=== PATIENT | female | born 1950 | race Caucasian/White ===

== ENCOUNTER 2020-07-03 23:41 | Emergency (ER) | payer MEDICARE ==
[~2020-07-03] VITALS: Ht 157.5 cm; Wt 55.0 kg
[2020-07-03] MEDS ORDERED: VITAMIN D PO (23:52)
[2020-07-03] MEDS ORDERED: TIMO0.5S29 (23:52)
[2020-07-04 01:00] VITALS: BP 173/81
== END 2020-07-04 01:33 | disposition home or self-care (01) ==
LOC: M ED 23:41
DX: K64.5 Perianal venous thrombosis (principal)

== ENCOUNTER 2023-07-27 23:36 | Emergency (ER) | payer MEDICARE, OTHER ==
[~2023-07-27] VITALS: Ht 157.5 cm; Wt 55.3 kg
[~2023-07-27 23:36] MED LIST: TIMO0.5S20; VITAMIN D PO
[2023-07-28 00:31] LABS: BASO # 0.1 10^3/uL (0.0-0.2); BASO % 0.9 % (0.0-1.0); EOS % 0.6 % (0.0-3.0); HEMATOCRIT 44.1 % (36.0-47.0); HEMOGLOBIN 14.7 g/dl (12.0-15.5); LYMPH # 1.6 10^3/uL (1.5-5.0); LYMPH % 24.7 % (24.0-44.0); MEAN CORPUSCULAR HEMOGLOBIN 29.8 pg (27.0-33.0); MEAN CORPUSCULAR HGB CONC 33.3 g/dl (32.0-36.5); MEAN CORPUSCULAR VOLUME 89.5 fl (80.0-96.0); MONO # 0.6 10^3/uL (0.0-0.8); MONO % 9.7 % (2.0-8.0); NEUTROPHILS # 4.2 10^3/uL (1.5-8.5); NEUTROPHILS % 63.5 % (36.0-66.0); PLATELET COUNT, AUTOMATED 310 10^3/uL (150-450); RED BLOOD COUNT 4.93 10^6/uL (4.00-5.40); WHITE BLOOD COUNT 6.6 10^3/uL (4.0-10.0)
[2023-07-28 01:05] LABS: LIPASE 31 U/L (12-53)
[2023-07-28 01:07] LABS: ALBUMIN 4.1 G/DL (3.2-5.2); ALKALINE PHOSPHATASE 71 U/L (46-116); ALT/SGPT < 9 U/L (7.0-40); AST/SGOT 17 U/L (<34); BILIRUBIN,DIRECT 0.3 MG/DL (<0.4); BILIRUBIN,TOTAL 0.9 MG/DL (0.3-1.2); BLOOD UREA NITROGEN 13 MG/DL (9-23); CALCIUM LEVEL 9.9 MG/DL (8.3-10.6); CARBON DIOXIDE LEVEL 30 MMOL/L (20-31); CHLORIDE LEVEL 107 MMOL/L (98-107); CK-MB VALUE MASS < 1.0 NG/ML (<3.6); CPK CREATINE PHOSPHOKINASE 55 U/L (34-145); CREATININE FOR GFR 0.66 MG/DL (0.55-1.30); GLOMERULAR FILTRATION RATE > 60.0 (>39); GLUCOSE, FASTING 137 MG/DL (74-106); MB/CK RELATIVE INDEX 1.81 (< OR =4); POTASSIUM SERUM 4.3 MMOL/L (3.5-5.1); SODIUM LEVEL 142 MMOL/L (136-145)
[2023-07-28 01:09] LABS: THYROID STIMULATING HORMONE 4.081 uIU/ML (0.55-4.78)
[2023-07-28] MEDS ORDERED: ISOVUE-370 76% 100ML VIAL As Ordered ONE (02:12)
[2023-07-28 03:14] LABS: CK-MB VALUE MASS < 1.0 NG/ML (<3.6)
[2023-07-28 03:17] LABS: CPK CREATINE PHOSPHOKINASE 57 U/L (34-145); MB/CK RELATIVE INDEX 1.75 (< OR =4)
[2023-07-28] MEDS ORDERED: HOLTER MONITOR XX (03:43)
[2023-07-28 04:00] VITALS: BP 119/63; TEMP 98.9; O2SAT 95
== END 2023-07-28 04:33 | disposition home or self-care (01) ==
LOC: M ED 23:36
DX: R00.2 Palpitations (principal); R00.0 Tachycardia, unspecified; Z79.899 Other long term (current) drug therapy
CPT/HCPCS: 36415; 71046; 71275; 80048; 80076; 82550; 82553; 83690; 83735; 84443; 84484; 85025; 93005; 93041; 94760; 99285; Q9967

== ENCOUNTER → 2023-08-03 | Outpatient (CLI) | payer OTHER ==
[~2023-08-03] MED LIST changes: +HOLTER MONITOR XX
== END ==
LOC: M EKG 14:15
PROVIDERS: ATTEND Emergency Medicine
DX: R00.2 Palpitations (principal); I49.3 Ventricular premature depolarization